=== PATIENT | female | born 1945 | race Caucasian/White ===

== ENCOUNTER 2020-10-20 06:15 | Inpatient (IN) | payer OTHER ==
[~2020-10-20] VITALS: Ht 165.1 cm; Wt 68.5 kg
[~2020-10-20 06:15] MED LIST: CRESTOR5 MG PO; DICLOFENAC POTA50 MG PO; DIOVAN HCT 80/11 TA1; LOSARTA PO; PEPCID AC20 MG PO; ROBAXIN500 MG PO; SINGULAIR10 MG PO; TRAZODONE PO
[2020-10-21] MEDS ORDERED: HYDROCHLOROTHIA25 MG (07:58)
[2020-10-21] MEDS ORDERED: DICLOFENAC POTA50 MG (07:58)
[2020-10-21] MEDS ORDERED: LOSARTAN POTASS50 MG (07:59)
[2020-10-21] MEDS ORDERED: TRAZODONE HCL150 MG (08:00)
[2020-10-22] MEDS ORDERED: OXYC1TAB9 PO (07:33)
[2020-10-22] MEDS ORDERED: INTEGRA PLUS C1 EACH PO (07:33)
[2020-10-22] MEDS ORDERED: BACTRIM DS TAB1 EACH PO (07:33)
[2020-10-22] MEDS ORDERED: XARELTO10 MG PO ×2 (07:33→08:10)
== END 2020-10-22 12:59 | DRG 470 ==
LOC: CIR.AMB 06:15 → SURH 22:09
PROVIDERS: ADMIT Orthopaedic Surgery Sports Medicine; ATTEND Orthopaedic Surgery Sports Medicine
PROC: 0SRB0JZ Replacement of Left Hip Joint with Synthetic Substitute, Open Approach (ICD-10-PCS; principal; 2020-10-20 11:00)
DX: M16.12 Unilateral primary osteoarthritis, left hip (principal); I10 Essential (primary) hypertension

== ENCOUNTER 2021-03-21 16:07 | Emergency (ER) | payer OTHER ==
[~2021-03-21] VITALS: Ht 165.1 cm; Wt 68.5 kg
[~2021-03-21 16:07] MED LIST changes: +BACTRIM DS TAB1 EACH PO; +DICLOFENAC POTA50 MG; +HYDROCHLOROTHIA25 MG; +INTEGRA PLUS C1 EACH PO; +LOSARTAN POTASS50 MG; +OXYC1TAB9 PO; +TRAZODONE HCL150 MG; +XARELTO10 MG PO
[2021-03-22] MEDS ORDERED: LEVSIN/SL0.125 MG SL (07:47)
[2021-03-22] MEDS ORDERED: FLAGYL500MG PO (07:47)
[2021-03-22] MEDS ORDERED: CIPRO500 MG PO (07:47)
[2021-03-22] MEDS ORDERED: PEPCID AC20 MG PO (07:47)
== END 2021-03-22 08:00 | disposition home or self-care (01) ==
LOC: ER 16:07
DX: K52.89 Other specified noninfective gastroenteritis and colitis (principal); E86.0 Dehydration; E87.5 Hyperkalemia; E58 Dietary calcium deficiency

== ENCOUNTER 2021-03-27 14:46 | Outpatient (CLI) | payer OTHER ==
[~2021-03-27 14:46] MED LIST changes: +CIPRO500 MG PO; +FLAGYL500MG PO; +LEVSIN/SL0.125 MG SL
== END 2021-03-27 14:49 | disposition home or self-care (01) ==
LOC: NUCLEAR 14:46
PROVIDERS: ATTEND Internal Medicine Sports Medicine
DX: M81.0 Age-related osteoporosis without current pathological fracture (principal)

== ENCOUNTER 2023-05-26 13:09 | Outpatient (CLI) | payer OTHER | END 2023-05-26 13:21 | disposition home or self-care (01) | LOC: NUCLEAR 13:09 | PROVIDERS: ATTEND Internal Medicine | DX: M81.8 Other osteoporosis without current pathological fracture (principal) ==

== ENCOUNTER 2023-08-29 10:43 | Outpatient (CLI) | payer OTHER | END 2023-08-29 10:49 | disposition home or self-care (01) | LOC: NUCLEAR 10:43 | PROVIDERS: ATTEND Internal Medicine Sports Medicine | DX: G45.9 Transient cerebral ischemic attack, unspecified (principal) ==

== ENCOUNTER 2024-08-12 15:13 | Emergency (ER) | payer OTHER ==
[~2024-08-12] VITALS: Ht 160 cm; Wt 71.2 kg
[2024-08-12] MEDS ORDERED: ACETAMINOPHEN 500 MG GEL..CAP PO ONE (15:45)
== END 2024-08-12 18:09 | disposition home or self-care (01) ==
LOC: ER 15:13
DX: S09.8XXA Other specified injuries of head, initial encounter (principal); W19.XXXA Unspecified fall, initial encounter; Y93.89 Activity, other specified; Y92.89 Other specified places as the place of occurrence of the external cause; Y99.8 Other external cause status

== ENCOUNTER 2024-08-19 18:55 | Emergency (ER) | payer OTHER ==
[~2024-08-19] VITALS: Ht 160 cm; Wt 63.5 kg
[2024-08-19] MEDS ORDERED: IPRATROPIUM/ALBUTEROL SULFATE 3 ML AMPUL.NEB IH SCH (21:30)
[2024-08-19 22:06] LABS: HEMATOCRIT 39.7 % (36.0-45.00); HEMOGLOBIN 13.5 g/dL (12.0-15.00); MEAN CELL VOLUME 91.8 fL (80.00-100.00); MEAN CORPUSCULAR HEMOGLOBIN 31.2 pg (27.00-32.0); MEAN CORPUSCULAR HGB CONC 33.9 g/dl (32.0-36.0); PLATELET COUNT 206 K/uL (150-450); RED BLOOD COUNT 4.32 M/uL (4.00-6.00); RED CELL DISTRIBUTION WIDTH 14.1 % (11.5-14.5)
[2024-08-20] MEDS ORDERED: ZYNCOF 20-400120 ML PO (02:12)
[2024-08-20] MEDS ORDERED: ZITHROMAX500 MG PO (02:12)
[2024-08-20] MEDS ORDERED: BUDESONIDE0.5 MG/2 M IH (02:12)
[2024-08-20] MEDS ORDERED: ALBUTEROL2.5 MG/3 M IH (02:12)
== END 2024-08-20 02:13 ==
LOC: ER 18:57
PROVIDERS: Preventive Medicine Public Health & General Preventive Medicine
DX: R53.81 Other malaise (principal); J20.9 Acute bronchitis, unspecified; Z20.822 Contact with and (suspected) exposure to COVID-19; I10 Essential (primary) hypertension

== ENCOUNTER → 2025-07-01 11:02 | Outpatient (CLI) | payer OTHER ==
[~2025-07-01 11:02] MED LIST changes: +ALBUTEROL2.5 MG/3 M IH; +ARTHRITIS PAIN150 G1 TOP; +BUDESONIDE0.5 MG/2 M IH; +CELEBREX200MG PO; +ZITHROMAX500 MG PO; +ZYNCOF 20-400120 ML PO
== END | disposition home or self-care (01) ==
LOC: NUCLEAR 11:02
PROVIDERS: ATTEND Internal Medicine
DX: M81.0 Age-related osteoporosis without current pathological fracture (principal)

== ENCOUNTER 2025-08-20 11:00 | Inpatient (IN) | payer OTHER ==
[~2025-08-20] VITALS: Ht 160 cm; Wt 72.1 kg
[2025-08-20] MEDS ORDERED: COZAAR100 MG (12:54)
[2025-08-20 12:55] VITALS: BP 175/88
[2025-08-26] MEDS ORDERED: TRANEXAMIC ACID 100MG/1ML (1000MG) AMPUL ONE (07:42)
[2025-08-26] MEDS ORDERED: CEFAZOLIN SODIUM 1,000 MG VIAL ONE (07:42)
[2025-08-26] MEDS ORDERED: KETOROLAC TROMETHAMINE 60 MG VIAL IM ONE (08:33)
[2025-08-26] MEDS ORDERED: MORPHINE SULFATE 4 MG/ML CARTRIDGE IV ONE (09:30)
[2025-08-26] MEDS ORDERED: THROMBIN,HU/FIBRINOGEN/CALCIUM 10 ML SYRINGE TOP ONE (09:57)
[2025-08-26] MEDS ORDERED: GENTAMICIN SULFATE 40 MG/ML VIAL IV SCH (11:55)
[2025-08-26] MEDS ORDERED: SODIUM CHLORIDE 0.45 % 1,000 ML IV SCH (12:00)
[2025-08-26] MEDS ORDERED: MORPHINE SULFATE 4 MG/ML VIAL IV PRN (12:00)
[2025-08-26] MEDS ORDERED: MORPHINE SULFATE 2 MG/ML CARTRIDGE IV ONE (12:00)
[2025-08-26] MEDS ORDERED: ONDANSETRON HCL 2 MG/ML VIAL IV PRN (12:00)
[2025-08-26] MEDS ORDERED: CEFAZOLIN SODIUM 1,000 MG VIAL IV SCH (12:00)
[2025-08-26] MEDS ORDERED: ALBUTEROL SULFATE 3 ML/2.5 MG AMPUL.NEB IH ONE (12:18)
[2025-08-26] MEDS ORDERED: ALBUTEROL SULFATE 3 ML/2.5 MG AMPUL.NEB IH SCH (13:00)
[2025-08-26 14:28] VITALS: BP 137/67; O2SAT 95
[2025-08-26 15:59] VITALS: BP 116/70; O2SAT 96
[2025-08-26] MEDS ORDERED: BUDESONIDE 0.5 MG/2 ML AMPUL.NEB IH SCH (21:00)
[2025-08-27 00:27] VITALS: BP 120/68; O2SAT 97
[2025-08-27 06:53] LABS: BASO % 0.2 % (0.1-1.2); EOS # 0.05 (0.04-0.54); EOS % 0.5 % (0.7-7.0); LYMPH # 1.39 (1.18-3.74); LYMPH % 14.6 % (19.3-53.1); MEAN PLATELET VOLUME 10.90 fl (9.4-12.4); MONO # 0.53 (0.24-0.82); MONO % 5.5 % (4.7-12.5); NEUT # 7.53 (1.56-6.13); NEUT % 78.9 % (34.0-71.1); RED CELL DISTRIBUTION WIDTH 13.0 % (11.6-14.4)
[2025-08-27 08:26] VITALS: BP 162/76; O2SAT 95
[2025-08-27] MEDS ORDERED: ACETAMINOPHEN WITH CODEINE 1 UDTAB TABLET PO PRN (08:30)
[2025-08-27] MEDS ORDERED: TRAZODONE HCL 50 MG TABLET PO SCH (09:00)
[2025-08-27] MEDS ORDERED: SENNA/DOCUSATE SODIUM 1 TAB TABLET PO SCH (09:00)
[2025-08-27] MEDS ORDERED: IRON FUM,PS/FOLIC/BCOMP,C NO.9 1 CAP CAPSULE PO SCH (09:00)
[2025-08-27] MEDS ORDERED: CELECOXIB 200 MG CAPSULE PO SCH (09:00)
[2025-08-27] MEDS ORDERED: HYDROCHLOROTHIAZIDE 25 MG TABLET PO SCH (09:00)
[2025-08-27] MEDS ORDERED: LOSARTAN POTASSIUM 100 MG TABLET PO SCH (09:00)
[2025-08-27] MEDS ORDERED: BACITRACIN 28.35 GM OINT.TUBE TOP SCH (09:00)
[2025-08-27] MEDS ORDERED: MONTELUKAST SODIUM 10 MG TABLET PO SCH (09:00)
[2025-08-27] MEDS ORDERED: RIVAROXABAN 10 MG TAB PO SCH (09:00)
[2025-08-27] MEDS ORDERED: hydrALAZINE HCL 20 MG VIAL IV PRN (13:00)
[2025-08-27 13:38] LABS: COVID-19 AG NEGATIVE (NEGATIVE)
[2025-08-27 15:40] LABS: BUN CREA RATIO 15.0 (7.0-25.0); CREATININE SERUM 0.72 mg/dL (0.55-1.02); GFR 77.55; GLUCOSE FASTING 229.0 mg/dL (65-100); OSMOLALITY SERUM 286.0 MOSM/KG (275-295)
[2025-08-27 15:54] VITALS: BP 120/73; O2SAT 94
[2025-08-27] MEDS ORDERED: SULFAMETHOXAZOLE/TRIMETHOPRIM DS 1 TAB PO SCH (21:00)
[2025-08-28] VITALS: BP 116/69; O2SAT 94
[2025-08-28 06:26] LABS: BASO % 0.2 % (0.1-1.2); EOS # 0.14 (0.04-0.54); EOS % 1.1 % (0.7-7.0); LYMPH # 1.48 (1.18-3.74); LYMPH % 11.8 % (19.3-53.1); MEAN PLATELET VOLUME 10.80 fl (9.4-12.4); MONO # 0.94 (0.24-0.82); MONO % 7.5 % (4.7-12.5); NEUT # 9.98 (1.56-6.13); NEUT % 79.2 % (34.0-71.1); RED CELL DISTRIBUTION WIDTH 12.9 % (11.6-14.4)
[2025-08-28] MEDS ORDERED: Septra Ds Tablet PO (06:29)
[2025-08-28] MEDS ORDERED: INTEGRA PLUS C1 EACH PO (06:29)
[2025-08-28] MEDS ORDERED: XARELTO10 MG PO (06:29)
[2025-08-28] MEDS ORDERED: ACETAMINOPHEN-1 EAC2 PO (06:30)
[2025-08-28 08:00] VITALS: BP 166/79; O2SAT 95
== END 2025-08-28 12:35 | DRG 470 ==
LOC: SURH 08-26 07:00 → SURG 08-26 07:00 → O/R 08-26 07:00 → SURH 08-26 11:00 → SURG 08-26 13:05
PROVIDERS: ADMIT Orthopaedic Surgery Sports Medicine; ATTEND Orthopaedic Surgery Sports Medicine
PROC: 0SR902Z Replacement of Right Hip Joint with Metal on Polyethylene Synthetic Substitute, Open Approach (ICD-10-PCS; principal; 2025-08-26 07:00)
DX: M16.11 Unilateral primary osteoarthritis, right hip (principal); Z96.641 Presence of right artificial hip joint